=== PATIENT | female | born 1965 | race Caucasian/White ===

== ENCOUNTER 2018-02-07 17:53 | Emergency (ER) | payer OTHER ==
[2018-02-07 17:58] VITALS: BP 131/73; PULSE 91; RESP 18; TEMP 98.1
--- NOTE | 2018-02-07 18:08 | ED ---
Extremity Problem HPI - General Chief complaint: Extremity Problem,Nontraumatic Stated complaint: Left Knee Pain Time Seen by Provider: 02/07/18 18:00 Source: patient, RN notes reviewed Mode of arrival: ambulatory Limitations: no limitations - History of Present Illness Initial comments: This is a 52-year-old female presents emergency Department chief complaint of left knee pain. She states it has been hurting for the last 4 weeks progressively getting worse. She states that it hurts even when she is lying down at nighttime. She states is sharp shooting pain only in her knee she states there is no pain above or below her knee. She states she has a history of back pain had surgery ago HAD no issues. Patient denies any leg swelling denies any pain in the posterior aspect of her left knee. Patient denies any discoloration, paresthesias. Denies any bowel bladder incontinence or retention. Patient states that does hurt when she is ambulating. She states a year ago she was having problems with her knee she states only hurts when she kneeled on states now this is different. - Related Data Previous Rx's Medication Instructions Recorded predniSONE 50 mg PO DAILY #5 tab 02/07/18 traMADol HCl [Ultram] 50 mg PO Q6H PRN #12 tab 02/07/18 Allergies Allergy/AdvReac Type Severity Reaction Status Date / Time No Known Allergies Allergy Verified 02/07/18 17:58 Review of Systems ROS Statement: Those systems with pertinent positive or pertinent negative responses have been documented in the HPI. ROS Other: All systems not noted in ROS Statement are negative. Past Medical History Past Medical History: No Reported History History of Any Multi-Drug Resistant Organisms: None Reported Past Surgical History: Back Surgery Past Psychological History: No Psychological Hx Reported Smoking Status: Current every day smoker Past Alcohol Use History: None Reported Past Drug Use History: None Reported General Exam Limitations: no limitations General appearance: alert, in no apparent distress Head exam: Present: atraumatic, normocephalic, normal inspection Respiratory exam: Present: normal lung sounds bilaterally. Absent: respiratory distress, wheezes, rales, rhonchi, stridor Cardiovascular Exam: Present: regular rate, normal rhythm, normal heart sounds. Absent: systolic murmur, diastolic murmur, rubs, gallop, clicks Extremities exam: Present: other (Left knee there is small area of swelling over the tibial tuberosity, there is no pain with palpation there is no laxity noted of the patella there is no laxity of anterior posterior drawer no pain with valgus or varus the legs neurovascular intact there is no edema) Neurological exam: Present: reflexes normal. Absent: motor sensory deficit Skin exam: Present: warm, dry, intact, normal color. Absent: rash Course Vital Signs 02/07/18 17:54 Temperature 98.1 F Pulse Rate 91 Respiratory 18 Rate Blood Pressure 131/73 O2 Sat by Pulse 99 Oximetry Medical Decision Making - Medical Decision Making 52-year-old female present for left knee pain. Patient has no known injury she has no swelling no popliteal tenderness. She has neurovascular intact. I do believe that there is an aspect of possible meniscus injury or some bursitis. Patient will be given steroids and short course of pain medication. She'll follow-up with on-call orthopedics and return for any worsening symptoms. Disposition Clinical Impression: Left knee pain Disposition: HOME SELF-CARE Condition: Stable Instructions: Knee Pain (ED) Additional Instructions: Please return to the Emergency Department if symptoms worsen or any other concerns. Prescriptions: predniSONE 50 mg PO DAILY #5 tab traMADol HCl [Ultram] 50 mg PO Q6H PRN #12 tab PRN Reason: Pain Is patient prescribed a controlled substance at d/c from ED?: Yes If prescribed controlled substance>3 days was MAPS reviewed?: No When asked, does pt state using other controlled substances?: No Referrals: None,Stated [Primary Care Provider] - 1-2 days Subhash Espinoza MD [Medical Doctor] - 1-2 days Time of Disposition: 18:56
--- NOTE | 2018-02-07 18:26 | XR ---
EXAMINATION TYPE: XR knee complete LT DATE OF EXAM: 02/07/2018 COMPARISON: NONE HISTORY: 52-year-old female with pain TECHNIQUE: 3 views FINDINGS: Trace, physiologic joint fluid. Extensor mechanism is intact. No acute fracture, subluxation, or disl ocation. IMPRESSION: No acute osseous abnormality seen.
== END 2018-02-07 19:08 | disposition home or self-care (01) ==
LOC: EC 17:53
DX: M25.562 Pain in left knee (principal); F17.200 Nicotine dependence, unspecified, uncomplicated
CPT/HCPCS: 99283

== ENCOUNTER 2018-03-14 15:14 | Emergency (ER) | payer OTHER ==
[2018-03-14] MEDS ORDERED: predniSONE 20 MG TAB PO STA (16:37)
[2018-03-14] MEDS ORDERED: BENZONATATE 100 MG CAP PO STA (16:37)
[2018-03-14] MEDS ORDERED: IPRATROPIUM-ALBUTEROL 3 ML NEB INHALATION STA ×2 (16:38→17:48)
[2018-03-14] MEDS ORDERED: IBUPROFEN 600 MG TAB PO STA (16:38)
--- NOTE | 2018-03-14 17:32 | XR ---
EXAMINATION TYPE: XR chest 2V DATE OF EXAM: 03/14/2018 COMPARISON: 07/29/2012 INDICATION: Pain, dyspnea TECHNIQUE: Frontal and lateral views of the chest are obtained. FINDINGS: The heart size is normal. The pulmonary vasculature is normal. The lungs are clear. IMPRESSION: 1. No acute pulmonary process.
--- NOTE | 2018-03-14 18:36 | ED ---
General Adult HPI - General Chief complaint: Shortness of Breath Stated complaint: SOB Time Seen by Provider: 03/14/18 16:23 Source: patient Mode of arrival: ambulatory Limitations: no limitations - History of Present Illness Initial comments: 52 yoF presenting with rhinorrhea, facial pressure, cough, and shortness of breath. Patient states one week prior she developed nasal congestion, facial pressure, and post-nasal drip. She stats that improved and progressed to rhinorrea with shortness of breath and a cough. She denies any F/C, chest pain, previous history of VT, DVT/PE, recent surgery, active cancer, or hormone replacement therapy. She does admit to smoking. She has a history of asthma but does not use a rescue inhaler, is not currently on steroid therapy, and has never been intubated. - Related Data Home Medications Medication Instructions Recorded Confirmed Naproxen 500 mg PO BID PRN 03/14/18 03/14/18 Previous Rx's Medication Instructions Recorded Albuterol Inhaler [Ventolin Hfa 1 - 2 puff INHALATION RT-Q6H PRN 03/14/18 Inhaler] #1 inhaler Benzonatate [Tessalon Perles] 100 mg PO TID PRN #20 cap 03/14/18 Nicotine 14Mg/24Hr Patch [Habitrol] 1 patch TRANSDERM DAILY #15 patch 03/14/18 predniSONE [Deltasone] 40 mg PO DAILY #10 tablet 03/14/18 Allergies Allergy/AdvReac Type Severity Reaction Status Date / Time No Known Allergies Allergy Verified 03/14/18 17:25 Review of Systems ROS Statement: Those systems with pertinent positive or pertinent negative responses have been documented in the HPI. Review of Systems Constitutional: Denies fever, chills Eyes: Denies change in vision, Denies pain Ears, nose, mouth, throat: Denies headaches, Denies sore throat. Positive facial pain. Positive rhinorrhea. Cardiovascular: Denies chest pain. Denies palpitations Respiratory: Positive shortness of breath. Positive cough Gastrointestinal: Denies abdominal pain. Denies nausea, vomiting, diarrhea. Genitourinary: Denies hematuria, Denies infections Musculoskeletal: Denies pain, Denies swelling Integumentary: Denies rash Neurological: Denies headache, focal weakness, focal numbness Psychiatric: Denies anxiety, Denies depression Hematologic/Lymphatic: Denies easy bleeding or bruising ROS Other: All systems not noted in ROS Statement are negative. Past Medical History Past Medical History: No Reported History History of Any Multi-Drug Resistant Organisms: None Reported Past Surgical History: Back Surgery Past Psychological History: No Psychological Hx Reported Smoking Status: Current every day smoker Past Alcohol Use History: None Reported Past Drug Use History: Marijuana General Exam Limitations: no limitations General appearance: alert, in no apparent distress Head exam: Present: atraumatic, normocephalic Eye exam: Present: normal appearance, EOMI. Absent: scleral icterus, conjunctival injection, nystagmus ENT exam: Present: mucous membranes moist, TM's normal bilaterally, other ( Boggy nasal mucosa ) Neck exam: Absent: lymphadenopathy Respiratory exam: Present: wheezes. Absent: respiratory distress, rales, rhonchi, stridor, accessory muscle use, decreased breath sounds Cardiovascular Exam: Present: regular rate, normal rhythm GI/Abdominal exam: Present: soft. Absent: distended, tenderness, guarding, rebound Extremities exam: Present: normal inspection, full ROM Neurological exam: Present: alert, oriented X3, abnormal gait Psychiatric exam: Present: normal affect, normal mood Skin exam: Present: warm, dry, intact Course Vital Signs 03/14/18 03/14/18 03/14/18 15:57 16:30 17:02 Temperature 98.3 F Pulse Rate 86 86 Respiratory 18 18 Rate Blood Pressure 109/74 O2 Sat by Pulse 98 Oximetry 03/14/18 03/14/18 03/14/18 17:16 17:51 17:59 Temperature 97.1 F L Pulse Rate 88 89 90 Respiratory 20 Rate Blood Pressure 123/63 O2 Sat by Pulse 99 Oximetry 03/14/18 18:06 Temperature Pulse Rate 92 Respiratory Rate Blood Pressure O2 Sat by Pulse Oximetry Medical Decision Making - Medical Decision Making 52 yoF presenting with rhinorrhea, cough, and shortness of breath. On initial exam the patient is awake, alert, and in NAD. VSS. She has diffuse wheezing but no conversational dyspnea. She denies chest pain. Her lung sounds and breathing improved with duonebs and steroids. PERC rule cannot be applied because of age. Her Wells score is 0. Discussed with patient concern for PE as it cannot be ruled out. She declined PE workup. At this time patient's symptoms are likely secondary to tobacco abuse and an asthma exacerbation/bronchitis. She was instructed to return to the ED if she has any worsening shortness of breath or develops chest pain. She was given rx for an albuterol rescue inhaler, prednisone, and nicotine patches. No further emergent workup indicated. The patient was given return to ED instructions. They were instructed to follow up with their primary care provider. Stable for discharge at this time. Disposition Clinical Impression: Bronchitis, Asthma with exacerbation, Tobacco abuse, Cough Disposition: HOME SELF-CARE Condition: Good Instructions: Asthma (ED), Acute Bronchitis (ED) Additional Instructions: Return to ER if your symptoms worsen, you have trouble breathing, or you develop chest pain. Prescriptions: Albuterol Inhaler [Ventolin Hfa Inhaler] 1 - 2 puff INHALATION RT-Q6H PRN #1 inhaler PRN Reason: Shortness Of Breath Benzonatate [Tessalon Perles] 100 mg PO TID PRN #20 cap PRN Reason: Cough Nicotine 14Mg/24Hr Patch [Habitrol] 1 patch TRANSDERM DAILY #15 patch predniSONE [Deltasone] 40 mg PO DAILY #10 tablet Is patient prescribed a controlled substance at d/c from ED?: No Referrals: None,Stated [Primary Care Provider] - 1-2 days
[2018-03-14 18:57] VITALS: BP 124/84; PULSE 79; RESP 18; TEMP 98.1
== END 2018-03-14 18:57 | disposition home or self-care (01) ==
LOC: EC 15:14
DX: J45.901 Unspecified asthma with (acute) exacerbation (principal); F17.200 Nicotine dependence, unspecified, uncomplicated
CPT/HCPCS: 94640 ×2; 71046; 99285; J7512